=== PATIENT | female | born 1985 | race African-American/Black ===

== ENCOUNTER 2017-11-18 09:02 | Emergency (ER) | payer OTHER ==
[2017-11-18] MEDS ORDERED: Ketorolac Tromethamine 30 MG/ML VIAL ONE (09:19)
[2017-11-18] MEDS ORDERED: HYDROcodone/Acetaminophen 5/325 mg Tablet ONE (09:20)
== END 2017-11-18 09:32 | disposition home or self-care (01) ==
LOC: NAV ERS 09:02
DX: K02.9 Dental caries, unspecified (principal); F17.210 Nicotine dependence, cigarettes, uncomplicated
CPT/HCPCS: 96372; J1885

== ENCOUNTER 2024-07-10 14:27 | Emergency (ER) | payer MEDICAID, SELFPAY ==
[2024-07-10] MEDS ORDERED: Ibuprofen 200 MG TAB ONE (15:21)
== END 2024-07-10 16:35 | disposition home or self-care (01) ==
LOC: NAV ERS 14:27
DX: J10.1 Influenza due to other identified influenza virus with other respiratory manifestations (principal); F17.290 Nicotine dependence, other tobacco product, uncomplicated
CPT/HCPCS: 87428; 99284